=== PATIENT | male | born 1955 | race Caucasian/White ===

== ENCOUNTER → 2023-05-08 06:14 | Day surgery (SDC) | payer MEDICARE, SELFPAY | LOC: GI 06:14 | PROVIDERS: ATTENDING PHYSICIAN Internal Medicine Gastroenterology | DX: K57.30 Diverticulosis of large intestine without perforation or abscess without bleeding (principal); K56.699 Other intestinal obstruction unspecified as to partial versus complete obstruction; K64.8 Other hemorrhoids; R19.4 Change in bowel habit; R93.3 Abnormal findings on diagnostic imaging of other parts of digestive tract; Z87.19 Personal history of other diseases of the digestive system | CPT/HCPCS: 45380; 88305 ==

== ENCOUNTER → 2024-11-18 14:40 | Outpatient (REF) | payer MEDICARE, SELFPAY | LOC: HWRCS 14:40 | PROVIDERS: ATTENDING PHYSICIAN Physician Assistant; FAMILY PHYSICIAN Internal Medicine | DX: I25.118 Atherosclerotic heart disease of native coronary artery with other forms of angina pectoris (principal); I10 Essential (primary) hypertension; I34.0 Nonrheumatic mitral (valve) insufficiency; R07.89 Other chest pain; R00.2 Palpitations | CPT/HCPCS: 93306 ==